=== PATIENT | female | born 1945 | race Caucasian/White ===

== ENCOUNTER 2020-03-21 10:38 | Outpatient (REF) | payer MEDICARE, SELFPAY ==
[2020-03-21 11:54] LABS: MANUAL DIFF FLAG NO
[2020-03-21 12:11] LABS: Basophils Percent Auto 0.6 % (0-2); Eosinophils Absolute Auto 0.1 X10*3/uL (0.0-0.4); Eosinophils Percent Auto 1.8 % (0-4); Hematocrit 43.8 % (37-47); Hemoglobin 14.8 g/dl (12.0-16.0); Imm Gran Abs Auto 0.02 X10*3/uL (0.00-0.03); Imm Gran Pct Auto 0.3 % (0.0-0.4); Lymphocytes Absolute Auto 2.3 X10*3/uL (1.2-4.9); Lymphocytes Percent Auto 36.4 % (20-40); Mean Corpuscular HGB Conc 33.8 g/dl (31.0-35.0); Mean Corpuscular Hemoglobin 32.5 pg (27.0-33.0); Mean Corpuscular Volume 96.1 fL (80-98); Monocytes Absolute Auto 0.5 X10*3/uL (0.1-1.2); Neutrophils Absolute Auto 3.3 X10*3/uL (2.0-8.3); Neutrophils Percent Auto 52.9 % (45-73); Platelet Count 243 X10*3/uL (160-400); Red Blood Count 4.56 X10*6/uL (4.20-5.50); White Blood Count 6.2 X10*3/uL (4.8-10.8)
[2020-03-21 12:31] LABS: Alanine Aminotransferase 30 U/L (0-31); Albumin Level 4.4 g/dL (3.5-5.0); Alkaline Phosphatase 75 U/L (39-117); Anion Gap 12 (12-20); Aspartate Amino Transferase 25 U/L (5-31); Bilirubin Total 0.6 mg/dL (0.0-1.0); Blood Urea Nitrogen 29 mg/dL (9-16); C Reactive Protein 0.13 mg/dL (< or = 0.50); Calcium 9.7 mg/dL (8.4-10.2); Carbon Dioxide 30 mmol/L (22-29); Chloride 103 mmol/L (96-108); Cholesterol 168 mg/dL; Estimated Glomerular Filt Rate 58; Glucose Random 99 mg/dL (60-115); HDL Cholesterol 56 mg/dL; Iron 113 mcg/dL (30-160); LDL Cholesterol Calculated 100 mg/dl; Percent Iron Saturation 36 % (15-50); Potassium 3.8 mmol/l (3.3-5.1); Sodium 141 mmol/L (135-145); Total Iron Binding Capacity 311 mcg/dL (228-428); Total Protein 7.3 g/dL (6.5-8.0); Triglycerides 62 mg/dL; Unsaturated Iron Binding 198 ug/dL
[2020-03-21 12:35] LABS: Estimated Average Glucose 105 mg/dL; Hemoglobin A1c % 5.3 %
[2020-03-21 12:55] LABS: Ferritin 247 ng/mL (10-250); TSH reflex Free T4 1.96 mIU/mL (0.32-4.0); Vitamin D 25-OH Total 41.9 ng/mL (>30)
[2020-03-24 13:52] LABS: Insulin Level Total 9.7 uIU/mL
[2020-03-24 16:32] LABS: Calcium (PTHI) 9.9 mg/dL (8.6-10.4); PTHI 30 pg/mL (14-64)
[2020-03-24 22:24] LABS: Folate 19.2 ng/mL (> or = 4.0); Vitamin B12 876 pg/mL (200-900)
[2020-03-25 02:26] LABS: Zinc 100 mcg/dL (60-130)
[2020-03-26 12:31] LABS: Vitamin B1 25 nmol/L (8-30)
[2020-03-26 12:57] LABS: Vitamin A 48 mcg/dL (38-98)
== END 2020-03-21 10:39 | disposition home or self-care (01) ==
LOC: HO.LAB 10:38
PROVIDERS: PCP Family Medicine; Visit Provider Surgery
DX: K90.49 Malabsorption due to intolerance, not elsewhere classified (principal)
CPT/HCPCS: 36415; 80053; 80061; 82306; 82607; 82728; 82746; 83036; 83525; 83540; 83970; 84425; 84443; 84590; 84630; 85025; 86140

== ENCOUNTER → 2020-04-11 08:34 | Outpatient (BNVA) | payer MEDICARE, SELFPAY | PROVIDERS: PCP Family Medicine; Visit Provider Surgery | DX: E66.9 Obesity, unspecified (principal); K90.9 Intestinal malabsorption, unspecified; Z68.32 Body mass index [BMI] 32.0-32.9, adult; Z87.891 Personal history of nicotine dependence; Z88.8 Allergy status to other drugs, medicaments and biological substances | CPT/HCPCS: 99212 ==

== ENCOUNTER → 2020-05-14 08:37 | Outpatient (BNVA) | payer MEDICARE, SELFPAY | PROVIDERS: PCP Family Medicine; Visit Provider Surgery | DX: E66.9 Obesity, unspecified (principal); Z68.32 Body mass index [BMI] 32.0-32.9, adult; Z71.3 Dietary counseling and surveillance | CPT/HCPCS: Q3014 ==

== ENCOUNTER → 2020-06-16 08:26 | Outpatient (BNVA) | payer MEDICARE, SELFPAY | PROVIDERS: PCP Family Medicine; Visit Provider Surgery | DX: E66.9 Obesity, unspecified (principal); Z68.31 Body mass index [BMI] 31.0-31.9, adult; Z98.84 Bariatric surgery status | CPT/HCPCS: Q3014 ==

== ENCOUNTER → 2020-07-23 08:14 | Outpatient (BNVA) | payer MEDICARE, SELFPAY | PROVIDERS: PCP Family Medicine; Visit Provider Surgery | DX: E66.9 Obesity, unspecified (principal); Z68.31 Body mass index [BMI] 31.0-31.9, adult | CPT/HCPCS: Q3014 ==

== ENCOUNTER → 2020-08-29 08:35 | Outpatient (BNVA) | payer MEDICARE, SELFPAY | PROVIDERS: PCP Family Medicine; Visit Provider Surgery | DX: E66.9 Obesity, unspecified (principal); Z98.84 Bariatric surgery status | CPT/HCPCS: Q3014 ==

== ENCOUNTER → 2020-09-18 12:49 | Outpatient (REF) | payer MEDICARE, SELFPAY ==
--- NOTE | 2020-09-18 13:00 | CA_ITS ---
Transthoracic Echocardiogram Patient (Last, First, Middle): Aniya Cruz, Gender: Female Date of : 1945 Age: 74 Procedure Date: 09/18/2020 Procedure Type: Transthoracic Echocardiogram Location: OP Height: 162.56 cm Weight: 83.92 kg BSA: 1.89 m2 Heart Rate: bpm BP: 108 / 60 mmHg Rehabilitation Physician: CLOVIS Referring MD: Mely Velazquez VELVET WEAVER-Christie Symptoms: I35.0 Study Quality: Fair ECG Rhythm: Sinus Conclusions: - The left ventricular systolic function is normal. The visually estimated ejection fraction is between 55-60%. - The left atrium is severely dilated. - There is mild aortic valve stenosis. - There is severe mitral annular calcification. Mean gradient across the mitral valve 3 mm Hg at 66/Min. By pressure half time, mitral valve area 1.7 sq cm. Probable mild mitral stenosis. Findings Left Ventricle Normal left ventricular cavity size. There is normal left ventricular wall thickness. The left ventricular systolic function is normal. The visually estimated ejection fraction is between 55-60%. There is no evidence of regional wall motion abnormalities. E/E prime ratio is >15, consistent with elevated filling pressures. Evidence suggests grade I (mild) diastolic dysfunction. Right Ventricle Normal right ventricular cavity size and systolic function. Atria The left atrium is severely dilated. The right atrium is normal in size. Aortic Valve There is mild calcification of the aortic valve. There is mild aortic valve stenosis. The peak aortic velocity is 2.11 m/s with a calculated peak gradient of 18 mmHg. The mean gradient is 9 mmHg. The aortic valve area is 1.74 cm2. There is no aortic valve regurgitation. Mitral Valve There is severe mitral annular calcification. There is mild mitral valve regurgitation. Mean gradient across the mitral valve 3 mm Hg at 66/Min. By pressure half time, mitral valve area 1.7 sq cm. Probable mild mitral stenosis. Pulmonic Valve The pulmonic valve was not well visualized. Tricuspid Valve There is trace tricuspid valve regurgitation. The pulmonary artery systolic pressure is normal. Great Vessels The asc aorta is normal in size. Venous The inferior vena cava is normal in size and collapses less than 50% with inspiration. Pericardium/Pleural There is no evidence of pericardial effusion. Prior Study Comparison No significant change compared to prior study dated: 09/14/2019. Measurements 2D Linear Measurements IVSd: 0.99 0.6-0.9/0.6-1.0 cm LVIDd: 3.56 3.9-5.3/4.2-5.9 cm LVIDd Index: 1.88 2.4-3.2/2.2-3.1 cm/m2 LVIDs: 2.39 2.0-3.6 cm LVPWd: 0.95 0.7-1.1 cm Ao Root: 3.20 2.1-3.5 cm LA Diam: 4.10 2.7-3.8/3.0-4.0 cm LAIDs Index: 2.17 1.5-2.3 cm/m2 LV Mass: 125.82 67-162/88-224 g LV Mass Index: 66.57 43-95/49-115 g/m2 LVOT Diam: 2.00 3.0+(-)1.3 cm 2D Systolic Function EF 4C: 64.00 >55% EF 2C: 58.30 >55% EF BiP: 61.90 >55% Mitral Valve MV VTI: 0.55 MV Pk Sai: 1.39 MV Mn Sai: 0.88 MV Pk Grad: 8.00 MV Mn Grad: 3.00 MV Pk E: 1.28 MV PK A: 1.26 MV Decel Time: 454.00 E/A: 1.00 E'Lateral: 8.22 E'Medial: 5.90 E/E' Med: 21.70 E/E' Lat: 15.60 PHT: 127.00 MVA PHT: 1.73 MVA Continuity: 1.37 Decel Cassia: 2.95 Aortic Valve AoV Pk Sai: 2.11 AoV Mn Sai: 1.36 AoV VTI: 0.43 AoV Pk Grad: 18.00 Aov Mn Grad: 9.00 DI Cont.VTI: 1.74 LVOT LVOT Pk Sai: 1.07 LVOT Mn Sai: 0.73 LVOT VTI: 0.24 LVOT Pk Grad: 5.00 LVOT Mn Grad: 3.00 LVOT Diam: 2.00 LVOT Area: 3.14 Diastolic Function MV Pk E: 1.28 MV Pk A: 1.26 E/A: 1.00 E'Medial: 5.90 E/E' Med: 21.70 E' Laterial: 8.22 E/E' Lat: 15.60 Tricuspid Valve TR Pk Sai: 2.36 TR Pk Grad: 22.00 RA Press: 8.00 RVSP: 30.00 Great Vessels Aorta Ao Root-2D: 3.20 2.0-3.7 cm Ao Asc: 3.10 2.1-3.4 cm Ao Arch: 3.40 Updated in Other Vendor System with Status of Final Nando Shi MD electronically signed on 09/20/2020 11:39:41 AM with status of Final
== END ==
LOC: HO.CARD 12:49
PROVIDERS: PCP Family Medicine; Visit Provider Nurse Practitioner Family
DX: I35.0 Nonrheumatic aortic (valve) stenosis (principal)
CPT/HCPCS: 93306

== ENCOUNTER → 2020-10-10 08:41 | Outpatient (BNVA) | payer MEDICARE, SELFPAY | PROVIDERS: PCP Family Medicine; Visit Provider Surgery | DX: E66.9 Obesity, unspecified (principal); Z68.31 Body mass index [BMI] 31.0-31.9, adult | CPT/HCPCS: Q3014 ==

== ENCOUNTER → 2020-12-29 07:48 | Outpatient (BNVA) | payer MEDICARE, SELFPAY | PROVIDERS: PCP Family Medicine; Visit Provider Surgery | DX: E66.9 Obesity, unspecified (principal); Z68.31 Body mass index [BMI] 31.0-31.9, adult | CPT/HCPCS: Q3014 ==

== ENCOUNTER → 2021-02-20 08:12 | Outpatient (BNVA) | payer MEDICARE, SELFPAY | PROVIDERS: PCP Family Medicine; Visit Provider Physician Assistant | DX: E66.9 Obesity, unspecified (principal); Z98.84 Bariatric surgery status; Z68.33 Body mass index [BMI] 33.0-33.9, adult | CPT/HCPCS: Q3014 ==

== ENCOUNTER → 2021-03-19 08:06 | Outpatient (BNVA) | payer MEDICARE, SELFPAY | PROVIDERS: PCP Family Medicine; Visit Provider Dietitian, Registered | DX: E66.9 Obesity, unspecified (principal); Z68.34 Body mass index [BMI] 34.0-34.9, adult | CPT/HCPCS: 97803 ==

== ENCOUNTER → 2021-05-15 08:16 | Outpatient (BNVA) | payer MEDICARE, SELFPAY | PROVIDERS: PCP Family Medicine; Visit Provider Physician Assistant | DX: Z13.89 Encounter for screening for other disorder (principal) | CPT/HCPCS: Q3014 ==

== ENCOUNTER → 2021-07-15 08:16 | Outpatient (BNVA) | payer MEDICARE, SELFPAY | PROVIDERS: PCP Family Medicine; Visit Provider Physician Assistant | DX: E66.9 Obesity, unspecified (principal); Z98.84 Bariatric surgery status; Z68.36 Body mass index [BMI] 36.0-36.9, adult | CPT/HCPCS: Q3014 ==

== ENCOUNTER → 2021-08-25 08:14 | Outpatient (BNVA) | payer MEDICARE, SELFPAY | PROVIDERS: PCP Family Medicine; Visit Provider Physician Assistant | DX: E66.9 Obesity, unspecified (principal); Z98.84 Bariatric surgery status; Z68.36 Body mass index [BMI] 36.0-36.9, adult | CPT/HCPCS: Q3014 ==

== ENCOUNTER 2024-08-23 10:21 | Outpatient (AMB) | payer MEDICARE, OTHER, SELFPAY ==
--- NOTE | 2024-08-23 10:26 | MHC.OFFVISWM ---
VS Expanded 08/23/24 10:39 BP 147/69 H Blood Pressure Location Rt brachial Blood Pressure Position Sitting Pulse 74 Pulse Source Pulse Oximeter Temp 91.9 F L Temperature Source Temporal Artery Scan Pulse Oximetry 99 Oxygen Delivery Method Room Air Height 5 ft 5 in Weight 225 lb 9.6 oz BMI 37.5 Body Fat % 41.8 Body Fat Mass 94.4 Fat Free Mass 131.2 Visceral Fat Rating 15.0 Body Water % 41.0 Body Water Mass 92.4 Muscle Mass/Score 124.6 Basal Metabolic Rate/Score 1,798 Intake Visit Reasons: (OV) PO LSG 11/22/19 Powerhouse Helper Required: No Allergies celecoxib [From CELEBREX] Allergy (Intermediate, Verified 08/23/24 10:34) LOWERED O2 SAT tramadol [From ULTRAM] Allergy (Intermediate, Verified 08/23/24 10:34) WHEEZING celebrex Allergy (Unknown, Uncoded 09/20/19 00:00) shortness of breath Medication List - Last Reconciled 08/23/24 by YOLA Rosales albuterol sulfate 90 mcg/actuation 1 inh inhalation QID cholecalciferol (vitamin D3) 50 mcg PO DAILY montelukast (Singulair) 10 mg PO DAILY omeprazole 20 mg PO DAILY sertraline 50 mg PO DAILY HPI Comments Details: Patient is a 78-year-old female who presents for follow-up. She is approximately 4 years 9 months post sleeve gastrectomy performed 11/22/2019. She has not been seen in the office in several years. Weight today is 225.6 lb with a BMI of 38.7. Patient states that last year she was taking Wegovy and lost approximately 20 lb. Her insurance changed and this was no longer covered. She attempted to get Zepbound covered however this required an 800 dollar co-pay and at this point she is not going to pursue further GLP 1 medications. States that she recently had labs done at an outside facility. She will fax them to our office. She is not wish to get labs done here. She will get vitamin labs done through her primary care physician. Meal plan: nothing formal Exercise plan: nothing formal given new meal plan [facility] Medical History (Updated 08/29/20 @ 10:18 by Hari Logan MD) Intestinal malabsorption BMI 32.0-32.9,adult Surgical History (Updated 02/20/21 @ 14:48 by Emelyn Magaña PA-C) S/P laparoscopic sleeve gastrectomy Obesity Family History (Updated 04/01/20 @ 10:30 by Dwayne Villafuerte [facility]) Father COPD (chronic obstructive pulmonary disease) Kidney cyst, acquired Mother HTN (hypertension) Multi-infarct dementia Brother No problems noted. Brother COPD (chronic obstructive pulmonary disease) Paranoid Son No problems noted. Son HTN (hypertension) Sleep apnea Daughter HTN (hypertension) Social History (Updated 04/01/20 @ 10:30 by Dwayne Villafuerte [facility]) Alcohol intake: never Physical Exam Vital Signs: Last Vital Signs Temp 91.9 F L 08/23/24 10:39 Const General: healthy appearing and no acute distress Resp Effort & Inspection: normal respiratory effort Auscultation: clear to auscultation bilaterally Cardio Rate: regular rate Rhythm: regular rhythm GI Auscultation: normal bowel sounds Extrem General: Yes normal to inspection Assessment & Plan Assessment & Plan (1) S/P laparoscopic sleeve gastrectomy: Code(s): Z98.84 - Bariatric surgery status Category: Surgical Plan: Patient had previously done well with GLP 1 medication however her insurance changed and it is no longer covered. She can not afford the co-pay. She will resume a new meal plan and exercise plan. Utilizing [employer] life ready to drink shakes, 1 in the morning and 1 at lunchtime, drank slowly over 2 hours each Meal at dinner with 6 forks of protein and 6 forks of vegetables Resume stationary bike at home which she has with a goal of burning 300 calories per day Encouraged to take a chewable multivitamin daily. Encouraged to get her labs drawn and faxed to our office. Return to clinic 2 months.
[2024-08-23 10:39] VITALS: BP 147/69; PULSE 74; TEMP 33.3; O2SAT 99; BMI 37.5
--- OUTSIDE RECORDS SUMMARY | 2024-08-23 12:55 | XMS_ITS ---
Author Organization Unknown Address [address] [place] [phone] Phone Care Team Providers Care Patient Transportation Driver Name Role Phone JAMISON WALTON Registered Nurse Unavailab bianca ENRIQUE Attending Unavailable [facility] Unavailable UNLISTED PROVIDER - REQUESTED Xhandoff Un available Social History Type Status Start Date End Date Code Code Syst em Smoking History Smoker, current stat us unknown [id number] SNOMED CT Sex Female Vital Signs Vital Sign Value Unit Keldron Value Keldron Unit Date/Time Recent/Initial? Code Code System Body Mass Index 40.51 kg/m2 02/04/2024 19:41 Initial 24259 -5 LOINC Systolic Blood Pressure 138 mm[Hg] 02/04/2024 21:30 Most Recent 8480- 6 LOINC Diastolic Blood Pressure 80 mm[Hg] 02/04/2024 21:30 Most Recent 8462- 4 LOINC Systolic Blood Pressure 150 mm[Hg] 02/04/2024 19:41 Initial 8480- 6 LOINC Diastolic Blood Pressure 81 mm[Hg] 02/04/2024 19:41 Initial 8462- 4 LOINC Body Surface Area 2.20 m2 02/04/2024 19:41 Initial 3140- 1 LOINC Height 162.560 0 cm 64.00 in 02/04/2024 19:41 Initial 8302- 2 LOINC O2 Saturation 96 % 2023 21:30 Most Recent 34488 -5 LOINC O2 Saturation 99 % 2023 19:41 Initial 09754 -5 LOINC Pulse 74.0 /min 02/04/2024 21:30 Most Recent 8867- 4 LOINC Pulse 86.0 /min 02/04/2024 19:41 Initial 8867- 4 LOINC Respiration 18 /min 02/04/20 21:30 Most Recent 9279- 1 LOINC Respiration 18 /min 02/04/20 19:41 Initial 9279- 1 LOINC Temperature 36.6 Hilda 97.9 F 02/04/20 19:41 Initial 8310- 5 LOINC Weight 107.05 kg 236.00 lbs 02/04/2024 19:41 Initial 44430 -7 [facility] Hospital Discharge Instructions Should you have any questions prior to discharge, please contact a member of your healthcare team. If you have left the hospital and have any questions, please contact your primary care physician. Reason For Referral No Data Found Allergies and Adverse Reactions Allergy Substance Reaction Severity Start Date Concern Status Co de Code System CELEBREX Active 271225 RxNorm ULTRAM Wheezing (SNOMED-CT: 00630342) Moderate Active 250854 RxNorm Plan of Treatment No Data Found Encounters Encounter Diagnosis Start Date Code Code Sys tem Unqualified visual loss, rig ht eye, normal vision left eye 02/04/2024 SNOMED-CT Personal Care Team Section Performer Name Performer Role Active Date Inactive Da te
== END 2024-08-23 11:13 | disposition home or self-care (01) ==
LOC: HO.HBS 10:22
PROVIDERS: PCP Family Medicine; Visit Provider Physician Assistant Surgical
DX: E66.812 Obesity, class 2 (principal); Z68.37 Body mass index [BMI] 37.0-37.9, adult; Z90.3 Acquired absence of stomach [part of]; Z98.84 Bariatric surgery status
CPT/HCPCS: 99214; G2211

== ENCOUNTER → 2024-08-23 10:21 | Outpatient (BNVA) | payer MEDICARE, OTHER, SELFPAY | PROVIDERS: PCP Family Medicine; Visit Provider Physician Assistant Surgical | DX: Z98.84 Bariatric surgery status (principal) | CPT/HCPCS: 99212 ==

== ENCOUNTER 2024-10-29 10:46 | Outpatient (AMB) | payer MEDICARE, OTHER, SELFPAY ==
[2024-10-29 10:46] VITALS: BMI 39.3
--- NOTE | 2024-10-29 10:46 | A.OFFVIS_ITS ---
VS Expanded 10/29/24 10:46 Height 5 ft 5 in Weight 236 lb BMI 39.3 Intake Visit Reasons: (TV) PO LSG 11/22/19 Allergies celecoxib [From CELEBREX] Allergy (Intermediate, Verified 08/23/24 10:34) LOWERED O2 SAT tramadol [From ULTRAM] Allergy (Intermediate, Verified 08/23/24 10:34) WHEEZING celebrex Allergy (Unknown, Uncoded 09/20/19 00:00) shortness of breath HPI Comments Details: Patient is a 78-year-old female who presents for follow-up. She is approximately 4 years 11 months post sleeve gastrectomy performed 11/22/2019. She has not been seen in the office in several years. Weight today is 236 lb with a BMI of 39.3. Patient states that last year she was taking Wegovy and lost approximately 20 lb. Her insurance changed and this was no longer covered. She attempted to get Zepbound covered however this required an 800 dollar co- pay and at this point she is not going to pursue further GLP 1 medications. States that she recently had labs done at an outside facility. She will fax them to our office. She is not wish to get labs done here. She will get vitamin labs done through her primary care physician. She states she tried the recommended meal plan for 2 days and then stopped. She also recently got sick and went to the ER with tachycardia and SOB. She was found to have hgb 6.9. She was admitted and got 1 u PRBC at [facility]. Repeat H/H 10/01 was 8.6. Then on 10/20 Hgb was 7.8. Referred to [facility] for iron def anemia. She has an appointment for GI 11/19/24. States she is taking iron + c complex. Recommended meal plan: fair life ready to drink shakes, 1 in the morning and 1 at lunchtime, drank slowly over 2 hours each Meal at dinner with 6 forks of protein and 6 forks of vegetables Exercise plan: nothing formal given new meal plan [facility] Medical History (Updated 10/29/24 @ 10:59 by YOLA Rosales) History of arthroplasty of finger Intestinal malabsorption BMI 32.0-32.9,adult Surgical History (Updated 08/23/24 @ 12:40 by Jazmin Gray CMA) Hx of bladder repair surgery Hx of hernia repair Hx of blepharoplasty Hx of bilateral cataract extraction Hx of ventral hernia repair Hx of carpal tunnel repair Hx of total knee replacement Hx of laminectomy History of fusion of lumbar spine Hx laparoscopic cholecystectomy Hx of arthroscopy of left knee Hx of hemorrhoidectomy Hx of hysterectomy Hx of appendectomy History of right salpingo-oophorectomy History of tonsillectomy Hx of inguinal hernia repair S/P laparoscopic sleeve gastrectomy Obesity Family History (Updated 04/01/20 @ 10:30 by Dwayne Villafuerte [facility]) Father COPD (chronic obstructive pulmonary disease) Kidney cyst, acquired Mother HTN (hypertension) Multi-infarct dementia Brother No problems noted. Brother COPD (chronic obstructive pulmonary disease) Paranoid Son No problems noted. Son HTN (hypertension) Sleep apnea Daughter HTN (hypertension) Social History (Updated 04/01/20 @ 10:30 by Dwayne Villafuerte [facility]) Alcohol intake: never Telehealth Telehealth Telehealth Platform: Telephone Location of provider rendering services: practice address Location of patient: address on file Patient Identification confirmed using: Name, : Yes Telehealth method: voice only Patient verbally consented to treatment: Yes Patient verbally consented to billing insurance company: Yes Patient informed of any privacy concerns related to visit: Yes Minutes spent on Phone/Video with Pt.: 15 Assessment & Plan Assessment & Plan (1) S/P laparoscopic sleeve gastrectomy: Comment: 11/22/19 Code(s): Z98.84 - Bariatric surgery status Category: Surgical Plan: Encouraged patient to follow the meal plan that was recommended. She reports that she is unable to exercise due to shortness of breath secondary to anemia. Encouraged to text weights weekly and with any questions or concerns. She thought that today's appointment was a phone appointment and did not come into the office. We were able to have the appointment anyway. We will have her return to the office in approximately 4-6 weeks. (2) Iron deficiency anemia: Code(s): D50.9 - Iron deficiency anemia, unspecified Category: Medical Plan: Patient was told that she has iron-deficiency anemia. She was recently admitted to the hospital in [facility]. She states she was given 1 unit packed red blood cells but no iron. She has been referred to Hematology at [facility] and will follow up there. She additionally has been referred to Gastroenterology for colonoscopy
--- OUTSIDE RECORDS SUMMARY | 2024-10-29 11:24 | XMS_ITS ---
Author Organization Unknown Address [address] [place] [address] [phone] Phone Care Team Providers Care Senior Scrum Master Name Role Phone JAMISON WALTON Registered Nurse Unavailab bianca ENRIQUE Attending Unavailable [facility] Unavailable UNLISTED PROVIDER - REQUESTED Xhandoff Un available Social History Type Status Start Date End Date Code Code Syst em Smoking History Smoker, current stat us unknown [id number] SNOMED CT Sex Female Vital Signs Vital Sign Value Unit Lamb Value Lamb Unit Date/Time Recent/Initial? Code Code System Body Mass Index 40.51 kg/m2 02/04/2024 19:41 Initial 76242 -5 LOINC Systolic Blood Pressure 138 mm[Hg] [...] Saturation 96 % 2023 21:30 Most Recent 37183 -5 LOINC O2 Saturation 99 % 2023 19:41 Initial 13531 -5 LOINC Pulse 74.0 /min 02/04/2024 21:30 Most Recent 8867- 4 LOINC Pulse 86.0 /min 02/04/2024 19:41 Initial 8867- 4 LOINC Respiration 18 /min 02/04/20 21:30 Most Recent 9279- 1 LOINC Respiration 18 /min 02/04/20 19:41 Initial 9279- 1 LOINC Temperature 36.6 Hilda 97.9 F 02/04/20 19:41 Initial 8310- 5 LOINC Weight 107.05 kg 236.00 lbs 02/04/2024 19:41 Initial 23835 -7 [facility] Hospital Discharge Instructions Should you have any questions prior to discharge, please contact a member of your healthcare team. If you have left the hospital and have any questions, please contact your primary care physician. Reason For Referral No Data Found Allergies and Adverse Reactions Allergy Substance Reaction Severity Start Date Concern Status Co de Code System CELEBREX Active 158338 RxNorm ULTRAM Wheezing (SNOMED-CT: 45693360) Moderate Active 998922 RxNorm Plan of Treatment No Data Found Encounters Encounter Diagnosis Start Date Code Code Sys tem Unqualified visual loss, rig ht eye, normal vision left eye 02/04/2024 SNOMED-CT Personal Care Team Section Performer Name Performer Role Active Date Inactive Da te
== END 2024-10-29 11:01 | disposition home or self-care (01) ==
LOC: HO.HBS 10:46
PROVIDERS: PCP Family Medicine; Visit Provider Physician Assistant Surgical
DX: D50.9 Iron deficiency anemia, unspecified (principal); Z98.84 Bariatric surgery status
CPT/HCPCS: 99213; G2211

== ENCOUNTER → 2024-10-29 10:46 | Outpatient (BNVA) | payer MEDICARE, OTHER, SELFPAY | PROVIDERS: PCP Family Medicine; Visit Provider Physician Assistant Surgical ==